=== PATIENT | female | born 1995 | race African-American/Black ===

== ENCOUNTER 2016-07-04 10:33 | Emergency (ER) | payer OTHER ==
[2016-07-04 10:57] VITALS: BP 123/75
== END 2016-07-04 11:31 | disposition home or self-care (01) ==
LOC: ER 10:33
DX: H01.004 Unspecified blepharitis left upper eyelid (principal)

== ENCOUNTER 2016-10-03 10:17 | Emergency (ER) | payer OTHER ==
[~2016-10-03] VITALS: Ht 152.4 cm; Wt 66.2 kg
[2016-10-03 10:41] VITALS: BP 158/83
== END 2016-10-03 11:13 | disposition home or self-care (01) ==
LOC: ER 10:24

== ENCOUNTER 2021-01-30 09:50 | Emergency (ER) | payer MEDICAID, OTHER ==
[~2021-01-30] VITALS: Ht 154.9 cm; Wt 76.7 kg
[2021-01-30 11:14] LABS: Urine Bacteria FEW /hpf (None Seen); Urine Blood Negative /uL (Negative); Urine Mucus FEW (None Seen); Urine Specific Gravity 1.025 (1.001-1.035); Urine WBC 122 /hpf (0 - 5)
[2021-01-30] MEDS ORDERED: cefTRIAXone SOD 1,000 MG VL IM ONE (13:15)
[2021-01-30] MEDS ORDERED: LIDOCAINE 1% HCL (LOCAL ANESTH.) INJ 20ML MDV ONE (13:19)
[2021-01-30 13:29] VITALS: BP 147/70
== END 2021-01-30 13:38 | disposition home or self-care (01) ==
LOC: ER 09:50
DX: N39.0 Urinary tract infection, site not specified (principal)
CPT/HCPCS: 36415; 74176; 81001; 84702; 96372; 99284; J0696; J2001

== ENCOUNTER 2022-10-17 11:55 | Emergency (ER) | payer MEDICAID ==
[~2022-10-17] VITALS: Ht 152.4 cm; Wt 72.7 kg
[2022-10-17 12:51] LABS: Eosinophils # (auto) 0.4 10 ^3/uL (0-0.8); Lymphocytes # (auto) 1.6 10 ^3/uL (0.4-5.4); Monocytes # (auto) 0.4 10 ^3/uL (0-1.3); Nucleated Red Blood Cells % 0.1 %
[2022-10-17 12:53] LABS: Basophils # (auto) 0 10 ^3/uL (0-0.2); Basophils % (auto) 0.8 % (0.0-2.0); Eosinophils % (auto) 6.4 % (0.0-7.0); Hematocrit 36.1 % (36.0-46.0); Hemoglobin 12.1 g/dL (12.2-16.2); Lymphocytes % (auto) 25.6 % (10.0-50.0); Mean Corpuscular Hemoglobin 26.6 pg (28.0-32.0); Mean Corpuscular Hgb Conc. 33.6 g/dL (32.0-36.0); Mean Corpuscular Volume 79.1 fL (80.0-100.0); Monocytes % (auto) 7.1 % (0.0-12.0); Neutrophils # (auto) 3.8 10 ^3/uL (1.6-8.6); Neutrophils % (auto) 60.1 % (37.0-80.0); Red Blood Cells 4.57 10^6/uL (4.0-5.20); Red Cell Distribution Width 15.4 % (11.8-14.3); White Blood Cell 6.3 10^3/uL (4.4-10.8)
[2022-10-17 14:24] LABS: Potassium 3.5 mmol/L (3.5-5.1)
[2022-10-17 14:29] LABS: BUN/Creatinine Ratio 10.9 (10.0-20.0); Bilirubin, Total 0.3 mg/dL (0.2-1.0); Calcium 9.1 mg/dL (8.5-10.1); Total Protein 8.2 g/dL (6.4-8.2)
[2022-10-17] MEDS ORDERED: AZIT1POW PO (14:36)
[2022-10-17 16:45] VITALS: BP 124/79
== END 2022-10-17 16:52 | disposition home or self-care (01) ==
LOC: ER 11:55
DX: J01.00 Acute maxillary sinusitis, unspecified (principal); R20.2 Paresthesia of skin; R07.89 Other chest pain
CPT/HCPCS: 36415; 70450; 80053; 81025; 82962; 85025; 93005

== ENCOUNTER 2023-05-27 04:50 | Emergency (ER) | payer MEDICAID ==
[~2023-05-27] VITALS: Ht 152.4 cm; Wt 68.4 kg
[~2023-05-27 04:50] MED LIST: AZIT1POW PO
[2023-05-27 05:52] LABS: Basophils # (auto) 0 10 ^3/uL (0-0.2); Basophils % (auto) 0.4 % (0.0-2.0); Monocytes # (auto) 1.1 10 ^3/uL (0-1.3); Neutrophils # (auto) 4.1 10 ^3/uL (1.6-8.6)
[2023-05-27 05:54] LABS: Eosinophils # (auto) 0.1 10 ^3/uL (0-0.8); Hematocrit 36.2 % (36.0-46.0); Hemoglobin 12.4 g/dL (12.2-16.2); Lymphocytes # (auto) 1.7 10 ^3/uL (0.4-5.4); Lymphocytes % (auto) 23.5 % (10.0-50.0); Mean Corpuscular Hemoglobin 26.6 pg (28.0-32.0); Mean Corpuscular Hgb Conc. 34.4 g/dL (32.0-36.0); Mean Corpuscular Volume 77.2 fL (80.0-100.0); Neutrophils % (auto) 58.1 % (37.0-80.0); Nucleated Red Blood Cells % 0.2 %; Red Blood Cells 4.68 10^6/uL (4.0-5.20); Red Cell Distribution Width 15.1 % (11.8-14.3); White Blood Cell 7.1 10^3/uL (4.4-10.8)
[2023-05-27 06:07] LABS: Alanine Aminotransferase 26 U/L (7-40); Albumin 5.5 g/dL (3.2-4.8); Alkaline Phosphatase 54 U/L (46-116); Anion Gap 11 (5-15); Aspartate Aminotransferase 35 U/L (13-40); BUN/Creatinine Ratio 7.6 (10.0-20.0); Blood Urea Nitrogen 10 mg/dL (9-23); Calcium 9.6 mg/dL (8.7-10.4); Carbon Dioxide 28 mmol/L (20-30); Chloride 95 mmol/L (98-107); Glucose 122 mg/dL (74-106); Potassium 2.8 mmol/L (3.5-5.1); Sodium 134 mmol/L (136-145)
[2023-05-27 06:08] LABS: Bilirubin, Total 0.9 mg/dL (0.2-1.0); Total Protein 10.1 g/dL (5.7-8.2)
[2023-05-27 06:22] LABS: Urine Bacteria NONE SEEN /hpf (None Seen); Urine Blood Negative /uL (Negative); Urine Clarity HAZY (Clear); Urine Color Yellow (Yellow); Urine Hyaline Cast MANY /lpf (0 - 2); Urine Mucus MODERATE (None Seen); Urine Protein, UAD 3+ (Negative); Urine Specific Gravity 1.029 (1.001-1.035); Urine WBC 17 /hpf (0 - 5)
[2023-05-27] MEDS ORDERED: SODIUM CHLORIDE 0.9% 1,000 ML IV ONE (06:45)
[2023-05-27] MEDS ORDERED: ONDANSETRON HCL 4 MG/2 ML VIAL IV ONE (06:45)
[2023-05-27] MEDS ORDERED: POTASSIUM EFFERVESENT TAB 25 MEQ PO ONE (06:45)
[2023-05-27] MEDS ORDERED: cefTRIAXone 1GM/50ML D5W 50 ML IV ONE (07:00)
[2023-05-27] MEDS ORDERED: cefTRIAXone SOD 1,000 MG VL ONE (07:05)
[2023-05-27] MEDS ORDERED: ONDANSETRON HCL 4 MG/2 ML VIAL ONE (07:16)
[2023-05-27] MEDS ORDERED: POTASSIUM CHL 20 Meq TABLET PO ONE (07:16)
[2023-05-27] MEDS ORDERED: POTASSIUM EFFERVESENT TAB 25 MEQ ONE (07:21)
[2023-05-27 07:45] VITALS: BP 100/62; PULSE 90; RESP 18; TEMP 98.1; O2SAT 100
[2023-05-27 08:12] LABS: Rapid Strep A Screen-Throat Negative
[2023-05-27] MEDS ORDERED: ZOFR4T PO (08:35)
[2023-05-27] MEDS ORDERED: AZIT-81 PO (08:35)
== END 2023-05-27 08:50 | disposition home or self-care (01) ==
LOC: ER 04:50
DX: E87.6 Hypokalemia (principal); J03.90 Acute tonsillitis, unspecified; R11.2 Nausea with vomiting, unspecified; Z79.899 Other long term (current) drug therapy
CPT/HCPCS: 36415; 80053; 81001; 81025; 85025; 87070; 87880; 96365; 96375; 99284; J0696; J2405

== ENCOUNTER 2024-08-25 06:32 | Emergency (ER) | payer MEDICAID ==
[~2024-08-25] VITALS: Ht 152.4 cm; Wt 65.7 kg
[~2024-08-25 06:32] MED LIST changes: +AZIT-185 PO; +ZOFR4T PO
[2024-08-25 07:03] VITALS: BP 122/86; PULSE 96; RESP 16; TEMP 97.9; O2SAT 98
[2024-08-25] MEDS ORDERED: NAP500T PO (07:24)
--- NOTE | 2024-08-25 07:25 | ED.PDOC ---
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 Time Seen by MD: 06:47 Reviewed Notes: Nurses Notes, Medications, Allergies Allergies: Coded Allergies: NO KNOWN ALLERGIES (Unverified , 10/17/22) Home Meds Active Scripts Naproxen (NAPROSYN TABLET) 500 Mg Tb, 1 TAB PO BID for 10 Days, #20 TAB 1 Refill Prov:POLO GARCIA MD 08/25/24 Ondansetron Odt 4MG Tab (ZOFRAN PO) 4 Mg Tb, 4 MG PO BID, #14 TAB ODT TAB-DISSOLVE IN MOUTH, THEN SWALLOW Prov:MISHA CAVAZOS 05/27/23 Azithromycin (ZITHROMAX TABLET) 250 Mg Tb, 250 MG PO DAILY, #6 TAB Prov:MISHA CAVAZOS 05/27/23 Azithromycin (Zithromax) 1 Gm Pow, 1 PACK PO ONCE, #1 PACK Prov:GUILLE PALUMBO MD 10/17/22 Information Source: Patient Mode of Arrival: Ambulatory Timing: Days, Came on: Gradually Severity: Mild, Moderate Vaginal Discharge: None Vaginal Lesions: None Vaginal Mass: None Onset Of Mass/Bleeding: Spontaneous Sexual Activity: Sexually Active Last Consensual [place]: Unknown Control: None Blood Type: Unknown Symptoms of Possible : Breast Tenderness Associated Signs and Symptoms: None Past Medical History PAST MEDICAL HISTORY: Denies Past Medical History (Other): Mireles's palsy PCOS Surgical History: Denies all surgeries APPLIANCE PARTS COUNTER CLERK History: No Pertinent APPLIANCE PARTS COUNTER CLERK History Family History Family History: Reviewed,noncontributory to illness, Family hx of Cancer Social History Smoker: Non-Smoker Alcohol: Occasionally Drugs: Denies Drug Use Lives In: Home Constitutional: denies: chills, diaphoresis, fatigue, fever, malaise, sweats, weakness, others EENTM: denies: blurred vision, double vision, ear bleeding, ear discharge, ear drainage, ear pain, ear ringing, eye pain, eye redness, hearing loss, mouth pain, mouth swelling, nasal discharge, nose bleeding, nose congestion, nose pain, photophobia, tearing, throat pain, throat swelling, voice changes, others Respiratory: denies: cough, hemoptysis, orthopnea, SOB at rest, shortness of breath, SOB with excertion, stridor, wheezing, others Cardiovascular: reports: chest pain; denies: dizzy spells, diaphoresis, Dyspnea on exertion, edema, irregular heart beat, left arm pain, lightheadedness, palpitations, PND, syncope, others Gastrointestinal: denies: abdomen distended, abdominal pain, blood streaked bowels, constipated, diarrhea, dysphagia, difficulty swallowing, hematemesis, melena, nausea, poor appetite, poor fluid intake, rectal bleeding, rectal pain, vomiting, others Genitourinary: denies: abnormal vagina bleeding, burning, dyspareunia, dysuria, flank pain, frequency, hematuria, incontinence, pain, , vagina discharge, urgency, others Neurological: denies: dizziness, fainting, headache, left sided numbness, left sided weakness, numbness, paresthesia, pre-existing deficit, right sided numbness, right sided weakness, seizure, speech problems, tingling, tremors, weakness, others Musculoskeletal: reports: muscle pain, others (Left lateral rib pain breast not tender with normal exam) Integumetry: denies: bruises, change in color, change in hair/nails, dryness, laceration, lesions, lumps, rash, wounds, others Allergic/Immunocompromised: denies: Difficulty Healing, Frequent Infections, Hives, Itching, others Hematologic/Lymphatic: denies: anemia, blood clots, easy bleeding, easy bruising, swollen glands, others Endocrine: denies: excessive hunger, excessive sweating, excessive thirst, excessive urination, flushing, intolerance to cold, intolerance to heat, unexplained weight gain, unexplained weight loss, others Psychiatric: denies: anxiety, bipolar disorder, depression, hopeless, panic disorder, schizophrenia, sleepless, suicidal, others All Other Systems: Reviewed and Negative Physical Exam General Appearance: Mild Distress HEENT: Normal ENT Inspection, Pharynx Normal, TMs Normal Neck: Full Range of Motion, Non-Tender, Normal, Normal Inspection Respiratory: Lungs Clear, No Respiratory Distress, Other (Rib pain) Cardiovascular: No Edema, No JVD, No Murmur, No Gallop, Normal Peripheral Pulses, Regular Rate/Rhythm Breast Exam: Deferred Gastrointestinal: No Organomegaly, Non Tender, No Pulsatile Mass, Normal Bowel Sounds, Soft Genitalia: Deferred Pelvic: Deferred Rectal: Deferred Extremities: No calf tenderness, Normal capillary refill, Normal inspection, Normal range of motion, Non-tender, No pedal edema Musculoskeletal : Location: Left Extremity Location: Other (Rib pain) Apperance: Tenderness: Moderate Neurologic: Alert, core dipper II-XII nml as Tested, No Motor Deficits, Normal Affect, Normal Mood, No Sensory Deficits Cerebellar Function: Normal Reflexes: Normal Skin: Dry, Normal Color, Warm Peripheral Pulses: 1+ carotid (R), 1+ carotid (L) Lymphatic: No Adenopathy Was a procedure done? Was a procedure done?: No Differential Diagnosis (APPLIANCE PARTS COUNTER CLERK) Vaginal Bleeding: Other (Left rib pain breast exam normal) Mass / Lesion: N/A Vaginal Discharge: N/A X-Ray, Labs, Meds, VS Vital Signs Date Time Temp Pulse Resp B/P (MAP) Pulse Ox O2 Delivery O2 Flow Rate FiO2 08/25/24 07:03 97.9 96 16 122/86 (98) 98 97.9 08/25/24 07:03 96 16 98 Room Air 08/25/24 06:41 97.9 96 16 122/86 (98) 98 97.9 X-Ray, Labs, Meds, VS Comment Presented to the fast track complaining of left breast pain The exam shows a normal breast tender left ribs Patient will be discharged home to follow up with her PCP Time of 1ST Reevaluation: 06:47 Reevaluation 1ST: Unchanged Time of 2ND Reevaluation: 07:30 Reevaluation 2ND: Improved Consultation: PCP Patient Education/Counseling: Diagnosis, Treatment, Prognosis, Need For Follow Up Family Education/Counseling: Diagnosis, Treatment, Prognosis, Need For Follow Up, No Family Present Departure 1 Departure Time of Disposition: 07:22 Impression: Primary Impression: Acute costochondritis Additional Impression: Normal breast exam Disposition: HOME / SELF CARE / HOMELESS Condition: Good Additional Instructions: Follow up with your PCP apply heat e-Prescriptions Naproxen (NAPROSYN TABLET) 500 Mg Tb 1 TAB PO BID for 10 Days, #20 TAB 1 Refill Prov: POLO GARCIA MD 08/25/24 Discharged With: Self Critical Care Note Critical Care Time?: No Stability Stability form required: No Heart Score Heart Score: Heart Score Response (Comments) Value History N/A 0 EKG N/A 0 Age <45 0 Risk Factors No known risk factors 0 Troponin N/A 0 Total 0 POLO GARCIA MD Aug 25, 2024 07:25
== END 2024-08-25 07:33 | disposition home or self-care (01) ==
LOC: ER 06:32
DX: M94.0 Chondrocostal junction syndrome [Tietze] (principal); Z79.899 Other long term (current) drug therapy

== ENCOUNTER 2024-11-16 05:57 | Emergency (ER) | payer SELFPAY ==
[~2024-11-16] VITALS: Ht 152.4 cm; Wt 61.9 kg
[~2024-11-16 05:57] MED LIST changes: +NAP500T PO
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
[2024-11-16] MEDS: IBUPROFEN 800 MG TAB PO ONE (06:59)
--- NOTE | 2024-11-16 07:45 | DVH ---
EXAM: XR Cervical Spine, 2 or 3 Views CLINICAL INDICATION: Rule out fracture TECHNIQUE: Frontal and lateral views of the cervical spine. COMPARISON: None FINDINGS: VERTEBRAE: Unremarkable. No definite fracture. Normal alignment. DISC SPACES: No acute findings. No significant narrowing. SOFT TISSUES: Unremarkable. OTHER FINDINGS: . IMPRESSION: No acute fracture.
--- NOTE | 2024-11-16 07:46 | DVH ---
EXAM: XR Lumbosacral Spine, 2 or 3 Views CLINICAL INDICATION: Rule out fracture TECHNIQUE: Frontal and lateral views of the lumbar spine and sacrum. COMPARISON: None FINDINGS: VERTEBRAE: Unremarkable. No acute fracture. Normal alignment. SACRUM/COCCYX: Unremarkable as visualized. No acute fracture. DISC SPACES: No acute findings. No significant narrowing. SOFT TISSUES: Unremarkable. OTHER FINDINGS: . . IMPRESSION: No acute fracture.
--- NOTE | 2024-11-16 07:49 | DVH ---
EXAM: XR Lumbosacral Spine, 2 or 3 Views CLINICAL INDICATION: Rule out fracture TECHNIQUE: Frontal and lateral views of the lumbar spine and sacrum. COMPARISON: None FINDINGS: VERTEBRAE: Unremarkable. No acute fracture. Normal alignment. SACRUM/COCCYX: Unremarkable as visualized. No acute fracture. DISC SPACES: No acute findings. No significant narrowing. SOFT TISSUES: Unremarkable. OTHER FINDINGS: . IMPRESSION: No acute fracture.
[2024-11-16 08:28] VITALS: BP 122/66; PULSE 65; RESP 16; TEMP 98.8; O2SAT 100
== END 2024-11-16 08:39 | disposition home or self-care (01) ==
LOC: ER 05:57
DX: S13.9XXA Sprain of joints and ligaments of unspecified parts of neck, initial encounter (principal); S33.5XXA Sprain of ligaments of lumbar spine, initial encounter; V89.2XXA Person injured in unspecified motor-vehicle accident, traffic, initial encounter; Y93.89 Activity, other specified; Y92.410 Unspecified street and highway as the place of occurrence of the external cause; Y99.8 Other external cause status
CPT/HCPCS: 72040; 72070; 72100